=== PATIENT | male | born 1975 | race Two or more races ===

== ENCOUNTER 2018-08-24 22:58 | Inpatient (IN) | payer MEDICAID, OTHER ==
[~2018-08-24] VITALS: Ht 170.2 cm; Wt 87.5 kg
[2018-08-24] MEDS ORDERED: MORPHINE SULFATE 4 MG/ML CPJ (NOT FOR IM USE) IV STA (23:35)
[2018-08-25 00:15] LABS: CHLORIDE 103 mEq/L (98-107); HEMATOCRIT. 44.8 % (42.0-52.0); HEMOGLOBIN. 15.6 g/dL (14.0-18.0); MEAN CORPUSCULAR HEMOGLOBIN 28.8 pg (28.0-32.0); MEAN CORPUSCULAR VOLUME 82.9 fL (80.0-94.0); MEAN PLATELET VOLUME 7.5 fl (7.4-10.4); PLATELET 296 x1000/uL (130-400)
[2018-08-25 00:17] LABS: INR 1.1; PROTHROMBIN TIME 10.6 sec (9.1-11.1)
[2018-08-25 00:39] LABS: CLARITY URINE CLEAR (CLEAR); COLOR URINE YELLOW (YELLOW); KETONES URINE NEGATIVE (NEGATIVE); LEUKOCYTE ESTERASE URINE NEGATIVE (NEGATIVE); NITRITE URINE NEGATIVE (NEGATIVE); OCCULT BLOOD URINE 2+ (NEGATIVE); PROTEIN URINE NEGATIVE (NEGATIVE); SPECIFIC GRAVITY URINE 1.023 (1.005-1.030); UROBILINOGEN URINE 0.2 E.U./dL (0.2-1.0)
[2018-08-25 00:52] LABS: PLATELET ESTIMATE NORMAL
[2018-08-25] MEDS ORDERED: PIPERACILLIN/TAZOBACTAM 3.375GM/50ML PREMIX IV ONE (01:30)
[2018-08-25] MEDS ORDERED: PIPERACILLIN/TAZ 3.375G PREMIX 50 ML IV NR (02:00)
[2018-08-25] MEDS ORDERED: MORPHINE SULFATE 4 MG/ML CPJ (NOT FOR IM USE) IV ONE (02:45)
[2018-08-25 04:00] VITALS: BP 118/69
[2018-08-25 05:02] VITALS: BP 118/69
[2018-08-25] MEDS ORDERED: DIPHENHYDRAMINE 50MG/ML VIAL IV PRN (05:30)
[2018-08-25] MEDS ORDERED: MORPHINE SULFATE 4 MG/ML CPJ (NOT FOR IM USE) IV PRN ×3 (05:30→10:30)
[2018-08-25] MEDS ORDERED: CLONIDINE 0.1MG TABLET PO PRN (05:30)
[2018-08-25] MEDS ORDERED: IPRATROPIUM/ALBUTEROL 0.5-3(2.5)MG/3ML NEB INH PRN (05:30)
[2018-08-25] MEDS ORDERED: MAGNESIUM/ALUMINUM HYDROXIDE/SIMETHICONE 30ML UDC PO PRN (05:30)
[2018-08-25] MEDS ORDERED: HYDROCODONE/ACETAMINOPHEN 10/325MG TABLET PO PRN (05:30)
[2018-08-25] MEDS ORDERED: ACETAMINOPHEN 325MG TABLET PO PRN (05:30)
[2018-08-25] MEDS ORDERED: PIPERACILLIN/TAZ 3.375G PREMIX 50 ML IV SCH (05:30)
[2018-08-25] MEDS ORDERED: LORAZEPAM 2MG/ML CPJ IV PRN (05:30)
[2018-08-25] MEDS ORDERED: DEXT 5%/0.45% NACL 1000ML 1,000 ML IV SCH (06:30)
[2018-08-25] MEDS: ONDANSETRON HCL 4MG/2ML INJ IV PRN (07:36)
[2018-08-25 08:00] VITALS: BP 119/72
[2018-08-25] MEDS ORDERED: ONDANSETRON HCL 4MG/2ML INJ IV PRN ×2 (08:00→10:30)
[2018-08-25] MEDS ORDERED: DEXT 5%/0.45% NACL KCL 20MEQ/L 1,000 ML IV SCH (08:00)
[2018-08-25] MEDS ORDERED: FENTANYL CITRATE/PF 50MCG/ML 2ML VIAL ONE ×2 (08:58→09:15)
[2018-08-25] MEDS ORDERED: PROPOFOL 200MG/20ML VIAL IV ONE (08:58)
[2018-08-25] MEDS ORDERED: MIDAZOLAM HCL 2 MG/2 ML VIAL ONE (08:58)
[2018-08-25] MEDS ORDERED: GLYCOPYRROLATE 0.2 MG/ML 2ML VIAL ONE ×2 (08:58→09:26)
[2018-08-25] MEDS ORDERED: METOCLOPRAMIDE HCL 10MG/2ML VIAL ONE (08:58)
[2018-08-25] MEDS ORDERED: ONDANSETRON HCL 4MG/2ML INJ ONE (08:58)
[2018-08-25] MEDS ORDERED: SUCCINYLCHOLINE CHLORIDE 200MG/10ML IV ONE (08:58)
[2018-08-25] MEDS ORDERED: LIDOCAINE HCL/PF 1% 10 MG/ML 5ML VIAL ONE (08:58)
[2018-08-25] MEDS: FAMOTIDINE 20MG/2ML VIAL IV SCH ×2 (09:00→21:43)
[2018-08-25] MEDS: ENOXAPARIN 40MG/0.4ML SYR SUBCUT SCH (09:00)
[2018-08-25] MEDS ORDERED: ROCURONIUM BROMIDE 10MG/ML VIAL 5ML IV ONE (09:02)
[2018-08-25] MEDS ORDERED: NEOSTIGMINE METHYLSULFATE 1MG/ML 10 ML VIAL ONE (09:25)
[2018-08-25] MEDS ORDERED: LEVOFLOXACIN 500MG PREMIX 100 ML IV SCH (10:00)
[2018-08-25] MEDS: PIPERACILLIN/TAZ 3.375G PREMIX 50 ML IV SCH ×2 (10:00→21:43)
[2018-08-25] MEDS ORDERED: SODIUM CHLORIDE 0.9% 1,000 ML IV ONE (10:19)
[2018-08-25] MEDS: HYDROMORPHONE HCL/PF 2MG/ML CPJ IV PRN ×4 (10:20→10:52)
[2018-08-25] MEDS ORDERED: HYDROMORPHONE HCL/PF 2MG/ML CPJ ONE (10:22)
[2018-08-25] MEDS ORDERED: MEPERIDINE HCL/PF 25MG/ML CPJ IV PRN ×2 (10:30)
[2018-08-25] MEDS ORDERED: NALOXONE INJ IV PRN (10:45)
[2018-08-25] MEDS ORDERED: ONDANSETRON INJ IV PRN (10:45)
[2018-08-25] MEDS ORDERED: DIPHENHYDRAMINE INJ IV PRN (10:45)
[2018-08-25] MEDS: HYDROMORPHONE PCA 10MG/50ML IV PRN (10:50)
[2018-08-25 12:00] VITALS: BP 138/86
[2018-08-25] MEDS: DEXT 5%/0.45% NACL KCL 20MEQ/L 1,000 ML IV SCH (14:08)
[2018-08-25] MEDS: METRONIDAZOLE 500 MG PREMIX 100 ML IV SCH (14:08)
[2018-08-25 16:00] VITALS: BP 131/89
[2018-08-25 20:00] VITALS: BP 130/98
[2018-08-26] VITALS: BP 132/80
[2018-08-26] MEDS: METRONIDAZOLE 500 MG PREMIX 100 ML IV SCH (00:59)
[2018-08-26] MEDS: PIPERACILLIN/TAZ 3.375G PREMIX 50 ML IV SCH ×3 (02:40→17:33)
[2018-08-26 04:00] VITALS: BP 124/82
[2018-08-26] MEDS: HYDROMORPHONE PCA 10MG/50ML IV PRN ×2 (04:54→22:34)
[2018-08-26] MEDS: DEXT 5%/0.45% NACL KCL 20MEQ/L 1,000 ML IV SCH ×3 (05:28→16:05)
[2018-08-26 07:02] LABS: HEMATOCRIT. 38.1 % (42.0-52.0); HEMOGLOBIN. 12.9 g/dL (14.0-18.0); MEAN CORPUSCULAR HEMOGLOBIN 28.2 pg (28.0-32.0); MEAN CORPUSCULAR VOLUME 83.5 fL (80.0-94.0); MEAN PLATELET VOLUME 7.8 fl (7.4-10.4); PLATELET 256 x1000/uL (130-400); RED BLOOD CELL COUNT 4.56 mill/uL (4.7-6.1); RED CELL DISTRIBUTION WIDTH 15.4 % (11.6-14.6)
[2018-08-26 07:08] LABS: CHLORIDE 106 mEq/L (98-107)
[2018-08-26 07:30] LABS: T4 FREE 1.18 ng/dL (0.76-1.46)
[2018-08-26 08:00] VITALS: BP 138/86
[2018-08-26] MEDS: FAMOTIDINE 20MG/2ML VIAL IV SCH ×2 (09:09→22:40)
[2018-08-26] MEDS: ENOXAPARIN 40MG/0.4ML SYR SUBCUT SCH (09:10)
[2018-08-26 09:39] LABS: PLATELET ESTIMATE NORMAL
[2018-08-26 12:00] VITALS: BP 131/84
[2018-08-26 16:00] VITALS: BP 130/86
[2018-08-26 20:00] VITALS: BP 139/93
[2018-08-27] VITALS: BP_SYST 121; BP_SYST 136; BP_DIAS 77; BP_DIAS 84
[2018-08-27] MEDS: PIPERACILLIN/TAZ 3.375G PREMIX 50 ML IV SCH ×4 (02:12→17:28)
[2018-08-27 04:00] VITALS: BP 133/84
[2018-08-27] MEDS: DEXT 5%/0.45% NACL KCL 20MEQ/L 1,000 ML IV SCH ×3 (05:47→21:17)
[2018-08-27] MEDS: ONDANSETRON HCL 4MG/2ML INJ IV PRN (06:31)
[2018-08-27 07:35] LABS: BASOPHILS % 0.3 % (0.0-2.0); EOSINOPHILS % 0.5 % (0.0-5.0); HEMATOCRIT. 37.1 % (42.0-52.0); HEMOGLOBIN. 12.6 g/dL (14.0-18.0); LYMPHOCYTES % 9.2 % (20.0-50.0); MEAN CORPUSCULAR HEMOGLOBIN 28.4 pg (28.0-32.0); MEAN CORPUSCULAR VOLUME 83.5 fL (80.0-94.0); MEAN PLATELET VOLUME 8.2 fl (7.4-10.4); MONOCYTES % 6.7 % (2.0-8.0); NEUTROPHILS % 83.3 % (40.0-76.0); PLATELET 244 x1000/uL (130-400); RED BLOOD CELL COUNT 4.45 mill/uL (4.7-6.1); RED CELL DISTRIBUTION WIDTH 15.6 % (11.6-14.6)
[2018-08-27 08:00] VITALS: BP 105/69
[2018-08-27] MEDS: ENOXAPARIN 40MG/0.4ML SYR SUBCUT SCH (09:08)
[2018-08-27] MEDS: FAMOTIDINE 20MG/2ML VIAL IV SCH ×2 (09:08→21:17)
[2018-08-27 09:20] LABS: CHLORIDE 100 mEq/L (98-107)
[2018-08-27 12:00] VITALS: BP 112/67
[2018-08-27 16:00] VITALS: BP 160/99
[2018-08-27] MEDS: ACETAMINOPHEN 650MG SUPP PR PRN ×2 (16:42→21:41)
[2018-08-27 20:00] VITALS: BP 117/73
[2018-08-27] MEDS: HYDROMORPHONE PCA 10MG/50ML IV PRN (20:00)
[2018-08-28] VITALS: BP 121/77
[2018-08-28] MEDS: PIPERACILLIN/TAZ 3.375G PREMIX 50 ML IV SCH ×4 (01:27→18:41)
[2018-08-28 04:00] VITALS: BP 125/85
[2018-08-28 08:00] VITALS: BP 110/72
[2018-08-28] MEDS: DEXT 5%/0.45% NACL KCL 20MEQ/L 1,000 ML IV SCH ×3 (09:02→22:04)
[2018-08-28] MEDS: FAMOTIDINE 20MG/2ML VIAL IV SCH ×2 (09:03→21:57)
[2018-08-28] MEDS: ENOXAPARIN 40MG/0.4ML SYR SUBCUT SCH (09:03)
[2018-08-28] MEDS: HYDROMORPHONE PCA 10MG/50ML IV PRN (09:23)
[2018-08-28 12:00] VITALS: BP 114/74
[2018-08-28 16:00] VITALS: BP 120/80
[2018-08-28 20:00] VITALS: BP 128/84
[2018-08-28] MEDS: CHLORPROMAZINE HCL 25 MG TABLET PO PRN (21:57)
[2018-08-29] VITALS: BP 142/90
[2018-08-29] MEDS: PIPERACILLIN/TAZ 3.375G PREMIX 50 ML IV SCH ×5 (00:28→23:29)
[2018-08-29 04:00] VITALS: BP 119/89
[2018-08-29 08:00] VITALS: BP 122/86
[2018-08-29] MEDS: FAMOTIDINE 20MG/2ML VIAL IV SCH ×2 (08:19→21:39)
[2018-08-29] MEDS: ENOXAPARIN 40MG/0.4ML SYR SUBCUT SCH (08:19)
[2018-08-29 12:00] VITALS: BP 126/85
[2018-08-29] MEDS: HYDROMORPHONE PCA 10MG/50ML IV PRN (13:33)
[2018-08-29] MEDS: DEXT 5%/0.45% NACL KCL 20MEQ/L 1,000 ML IV SCH ×2 (13:35→23:29)
[2018-08-29 16:00] VITALS: BP 110/80
[2018-08-29 20:00] VITALS: BP 112/77
[2018-08-30] VITALS: BP 108/66
[2018-08-30 04:00] VITALS: BP 112/70
[2018-08-30] MEDS: PIPERACILLIN/TAZ 3.375G PREMIX 50 ML IV SCH ×4 (06:36→23:16)
[2018-08-30 08:00] VITALS: BP 117/75
[2018-08-30] MEDS: ENOXAPARIN 40MG/0.4ML SYR SUBCUT SCH (08:37)
[2018-08-30] MEDS: FAMOTIDINE 20MG/2ML VIAL IV SCH ×2 (08:38→21:32)
[2018-08-30] MEDS: DEXT 5%/0.45% NACL KCL 20MEQ/L 1,000 ML IV SCH ×2 (10:50→23:19)
[2018-08-30 12:00] VITALS: BP 111/16
[2018-08-30] MEDS: MORPHINE SULFATE 4 MG/ML CPJ (NOT FOR IM USE) IV PRN ×3 (13:40→21:33)
[2018-08-30 16:00] VITALS: BP 116/76
[2018-08-30 20:00] VITALS: BP 126/81
[2018-08-30] MEDS: CHLORPROMAZINE HCL 25 MG TABLET PO PRN (21:15)
[2018-08-30] MEDS: TEMAZEPAM 15MG CAPSULE PO PRN (23:16)
[2018-08-31 04:00] VITALS: BP 115/81
[2018-08-31] MEDS: MORPHINE SULFATE 4 MG/ML CPJ (NOT FOR IM USE) IV PRN ×3 (04:03→15:49)
[2018-08-31 07:43] LABS: BASOPHILS % 0.2 % (0.0-2.0); EOSINOPHILS % 1.3 % (0.0-5.0); HEMOGLOBIN. 12.3 g/dL (14.0-18.0); LYMPHOCYTES % 10.1 % (20.0-50.0); MEAN CORPUSCULAR HEMOGLOBIN 28.3 pg (28.0-32.0); MEAN CORPUSCULAR VOLUME 82.8 fL (80.0-94.0); MEAN PLATELET VOLUME 7.9 fl (7.4-10.4); MONOCYTES % 9.3 % (2.0-8.0); NEUTROPHILS % 79.1 % (40.0-76.0); PLATELET 266 x1000/uL (130-400); RED BLOOD CELL COUNT 4.35 mill/uL (4.7-6.1); RED CELL DISTRIBUTION WIDTH 15.2 % (11.6-14.6)
[2018-08-31] MEDS: PIPERACILLIN/TAZ 3.375G PREMIX 50 ML IV SCH ×3 (07:56→18:44)
[2018-08-31] MEDS: DEXT 5%/0.45% NACL KCL 20MEQ/L 1,000 ML IV SCH ×2 (07:56→15:48)
[2018-08-31 08:00] VITALS: BP 138/75
[2018-08-31] MEDS: FAMOTIDINE 20MG/2ML VIAL IV SCH ×2 (08:00→22:53)
[2018-08-31] MEDS: ENOXAPARIN 40MG/0.4ML SYR SUBCUT SCH (08:01)
[2018-08-31] MEDS: CHLORPROMAZINE HCL 25 MG TABLET PO PRN ×2 (08:06→22:54)
[2018-08-31 09:14] LABS: CHLORIDE 101 mEq/L (98-107)
[2018-08-31 12:00] VITALS: BP 121/76
[2018-08-31 16:00] VITALS: BP 112/72
[2018-08-31] MEDS: TEMAZEPAM 15MG CAPSULE PO PRN (22:53)
[2018-08-31] MEDS: HYDROCODONE/ACETAMINOPHEN 10/325MG TABLET PO PRN (22:55)
[2018-09-01] VITALS: BP 124/76
[2018-09-01] MEDS: PIPERACILLIN/TAZ 3.375G PREMIX 50 ML IV SCH ×2 (01:01→06:50)
[2018-09-01 04:00] VITALS: BP 116/75
[2018-09-01] MEDS: HYDROCODONE/ACETAMINOPHEN 10/325MG TABLET PO PRN ×2 (06:50→19:48)
[2018-09-01 08:00] VITALS: BP 131/84
[2018-09-01 08:33] LABS: CHLORIDE 103 mEq/L (98-107)
[2018-09-01 08:38] LABS: BASOPHILS % 0.7 % (0.0-2.0); EOSINOPHILS % 3.2 % (0.0-5.0); HEMATOCRIT. 34.8 % (42.0-52.0); HEMOGLOBIN. 11.8 g/dL (14.0-18.0); LYMPHOCYTES % 15.3 % (20.0-50.0); MEAN CORPUSCULAR VOLUME 82.8 fL (80.0-94.0); MEAN PLATELET VOLUME 7.5 fl (7.4-10.4); MONOCYTES % 9.3 % (2.0-8.0); NEUTROPHILS % 71.5 % (40.0-76.0); PLATELET 261 x1000/uL (130-400)
[2018-09-01] MEDS: ENOXAPARIN 40MG/0.4ML SYR SUBCUT SCH (08:56)
[2018-09-01] MEDS: FAMOTIDINE 20MG/2ML VIAL IV SCH ×2 (08:57→21:06)
[2018-09-01] MEDS: MORPHINE SULFATE 4 MG/ML CPJ (NOT FOR IM USE) IV PRN ×2 (10:08→13:26)
[2018-09-01 12:00] VITALS: BP 119/80
[2018-09-01] MEDS: DEXT 5%/0.45% NACL KCL 20MEQ/L 1,000 ML IV SCH ×2 (13:11→22:15)
[2018-09-01 16:00] VITALS: BP 113/73
[2018-09-01 20:00] VITALS: BP 121/87
[2018-09-01] MEDS: TEMAZEPAM 15MG CAPSULE PO PRN (22:15)
[2018-09-02] VITALS: BP 113/71
[2018-09-02 04:00] VITALS: BP 117/77
[2018-09-02] MEDS: HYDROCODONE/ACETAMINOPHEN 10/325MG TABLET PO PRN (05:10)
[2018-09-02 08:00] VITALS: BP 116/77
[2018-09-02] MEDS: DEXT 5%/0.45% NACL KCL 20MEQ/L 1,000 ML IV SCH ×2 (08:00→18:00)
[2018-09-02] MEDS: FAMOTIDINE 20MG/2ML VIAL IV SCH ×2 (10:55→21:44)
[2018-09-02] MEDS: ENOXAPARIN 40MG/0.4ML SYR SUBCUT SCH (10:55)
[2018-09-02 12:00] VITALS: BP 105/69
[2018-09-02 16:00] VITALS: BP 116/77
[2018-09-02 20:00] VITALS: BP 124/80
[2018-09-02] MEDS: TEMAZEPAM 15MG CAPSULE PO PRN (21:45)
[2018-09-03] VITALS: BP 114/77
[2018-09-03 04:00] VITALS: BP 112/75
[2018-09-03] MEDS: HYDROCODONE/ACETAMINOPHEN 10/325MG TABLET PO PRN (06:10)
[2018-09-03 08:00] VITALS: BP 109/67
[2018-09-03] MEDS: FAMOTIDINE 20MG/2ML VIAL IV SCH ×2 (09:37→21:51)
[2018-09-03] MEDS: ENOXAPARIN 40MG/0.4ML SYR SUBCUT SCH (09:37)
[2018-09-03 12:00] VITALS: BP 95/65
[2018-09-03 16:00] VITALS: BP 109/65
[2018-09-03 20:00] VITALS: BP 113/69
[2018-09-03] MEDS: TEMAZEPAM 15MG CAPSULE PO PRN (21:51)
[2018-09-04] VITALS: BP 124/77
[2018-09-04 04:00] VITALS: BP 103/59
[2018-09-04 08:00] VITALS: BP 106/72
[2018-09-04] MEDS: FAMOTIDINE 20MG/2ML VIAL IV SCH (09:00)
[2018-09-04] MEDS: ENOXAPARIN 40MG/0.4ML SYR SUBCUT SCH (09:00)
[2018-09-04 09:32] VITALS: BP 106/72
[2018-09-04 10:11] VITALS: BP 106/72
[2018-09-04] MEDS: HYDROCODONE/ACETAMINOPHEN 10/325MG TABLET PO PRN (10:11)
== END 2018-09-04 11:55 | disposition home or self-care (01) | DRG 710 ==
LOC: ER 22:58 → 6EST 08-25 02:23 → EDBEDREQTM 08-25 02:27 → EDBEDREQ 08-25 02:27 → ENRESERV 08-25 02:49
PROVIDERS: ADMIT Internal Medicine; ATTEND Internal Medicine
PROC: 0DBN0ZZ Excision of Sigmoid Colon, Open Approach (ICD-10-PCS; 2018-08-25)
PROC: 0D1N0Z4 Bypass Sigmoid Colon to Cutaneous, Open Approach (ICD-10-PCS; principal; 2018-08-25 09:00)
DX: A41.9 Sepsis, unspecified organism (principal); K57.20 Diverticulitis of large intestine with perforation and abscess without bleeding; E66.9 Obesity, unspecified; N20.0 Calculus of kidney; F17.200 Nicotine dependence, unspecified, uncomplicated; D50.0 Iron deficiency anemia secondary to blood loss (chronic); Z98.84 Bariatric surgery status; Z68.30 Body mass index [BMI] 30.0-30.9, adult
CPT/HCPCS: 36415; 74018; 74176; 80048; 84439; 84443; 87070; 87075; 87076; 87077; 87186; 88307; 88329; 96365; 96375; 96376; 97162; 99285; J0330; J1170; J1650; J1956; J2250; J2270; J2405; J2543; J2704; J2710; J2765; J3010; J3490; J7030; Q0161